=== PATIENT | male | born 1995 | race Caucasian/White ===

== ENCOUNTER 2022-05-22 13:38 | Emergency (ER) | payer OTHER, SELFPAY ==
--- NOTE | ~2022-05-22 | XR_ITS ---
EXAMINATION: XR ANKLE, RIGHT CLINICAL INFORMATION: Pain COMPARISON: None TECHNIQUE: AP, lateral, and mortise views of the right ankle. FINDINGS: There is no evidence of acute fracture or dislocation of the right ankle. Ankle mortise appears intact. Some mild soft tissue swelling seen laterally. XR/XR ankle RT min 3V IMPRESSION: No significant bony abnormality of the right ankle identified.
[2022-05-22 13:42] VITALS: BP 105/53; PULSE 62; RESP 18; TEMP 37.2; O2SAT 97; BMI 28.3
--- NOTE | 2022-05-22 19:19 | ED.LOWEXIN ---
HPI - Extremity Injury (Lower) General Chief Complaint: Extremity Injury, Lower Stated Complaint: R ankle rolled Time Seen by Provider: 05/22/22 18:50 Source: patient Mode of arrival: ambulatory History of Present Illness HPI Narrative: 26-year-old male who states that he tripped and fell while fishing rolling his right ankle with swelling and otherwise denies head strike or loss of consciousness. Patient reports severe pain at the joint and is unable to bear weight. Related Data Allergies Allergy/AdvReac Type Severity Reaction Status Date / Time ibuprofen [IBUPROFEN] Allergy Unknown CERNA HIS Unverified 07/02/20 16:18 STOMACH ibuprofen Allergy Unknown GI burning Uncoded 03/29/16 00:00 Review of Systems Review of Systems: Pertinent positives and negatives as stated in HPI 10 point review of systems is otherwise negative. PMFSH Past Medical History Source: nursing notes reviewed Social History Social History Advance Directives: No Advance Directives Information Provided: No Physical Exam Vital Signs: Vital Signs: Last Vital Signs Temp 98.9 F 05/22/22 13:42 Pulse 62 05/22/22 13:42 Resp 18 05/22/22 13:42 BP 105/53 L 05/22/22 13:42 Pulse Ox 97 05/22/22 13:42 O2 Del Method 05/22/22 13:42 BMI result Body Mass Index 28.3 VITAL SIGNS: Reviewed. GENERAL: Well developed, well nourished, in no acute distress. HEAD: Normocephalic/atraumatic EYES: PERRLA, EOMI EARS: Ext canals without abnormality OROPHARYNX: no oral lesions noted, posterior pharynx clear LUNGS: Normal breath sounds. No adventitious sounds or accessory muscle use. SpO2<97> CARDIOVASCULAR: Regular rate and rhythm without noted murmurs ABDOMEN: Soft, non-tender, non-distended with bowel sounds. MUSCULOSKELETAL: No tenderness, deformities, or effusions noted on gross inspection. EXTREMITIES: No cyanosis, clubbing or edema; RIGHT ANKLE: Minimal swelling at the medial malleolus, however there is swelling at the lateral malleolus, foot is warm, capillary refill less than 3 seconds, palpable DP/PT.. SKIN: Inspection of the skin reveals no rashes NEUROLOGIC: Alert and oriented x 4. Strength and sensation to light touch were grossly intact x 4. Course Course Course Narrative: 26-year-old male with history and clinical presentation suggestive sprain versus fracture/dislocation and on review of imaging there is no evidence to suggest fracture or dislocation. Patient was provided with Tylenol (he is allergic to ibuprofen) and otherwise had an Bora wrap placed with crutch training and was discharged home in stable condition. Discharge Plan Discharge Clinical Impression: Ankle sprain and strain Patient Disposition: Home, Self-Care Instructions: Ankle Sprain (ED), Crutch Instructions (ED), R.I.C.E. Treatment (ED) Additional Instructions: 1. Recommend Tylenol 1000 mg, orally, every 6 hours as needed for pain control. Do not exceed 4000 mg within 24 hours. 2. Recommend applying ice to unexposed skin for 10-15 minutes, 3 to 4 times a day. 3. You have been provided with instructions regarding crutches and you should keep the Bora wrap in place unless showering and follow-up with your primary care provider by calling the office in the morning. Recommend trying lidocaine patch, this is available [id number], and apply to the area of maximal tenderness as directed on the outside packaging. Return to the ER for worsening symptoms. Stand Alone Forms: Work/School Release
[2022-05-22] MEDS: Acetaminophen 325 MG TABLET 975 MG PO (19:49)
== END 2022-05-22 19:50 | disposition home or self-care (01) ==
PROVIDERS: Emergency Provider Student in an Organized Health Care Education/Training Program
DX: S93.401A Sprain of unspecified ligament of right ankle, initial encounter (principal); S96.911A Strain of unspecified muscle and tendon at ankle and foot level, right foot, initial encounter; X50.1XXA Overexertion from prolonged static or awkward postures, initial encounter; Y93.19 Activity, other involving water and watercraft; Y92.89 Other specified places as the place of occurrence of the external cause; Y99.8 Other external cause status
CPT/HCPCS: 73610; 99283

== ENCOUNTER 2025-05-20 14:09 | Emergency (ER) | payer MEDICAID, SELFPAY ==
[2025-05-20 14:15] VITALS: BP 164/88; PULSE 86; RESP 18; TEMP 36.4; O2SAT 98; BMI 26.5
--- NOTE | 2025-05-20 14:21 | ED_ITS ---
HPI - Nausea/Vomiting/Diarrhea General Chief complaint: Abdominal Pain Stated complaint: Dehydration, vomiting Time Seen by Provider: 05/20/25 21:10 Related Data Previous Rx's ?Medication ?Instructions ?Recorded ondansetron 4 mg disintegrating 4 mg PO Q6-8H PRN naus ea and 05/20/25 tablet vomiting #14 tabs Allergies Allergy/AdvReac Type Severity Reaction Status Date / Time ibuprofen (IBUPROFEN) Allergy Unknown CERNA HIS Verified 05/20/25 14:22 STOMACH ibuprofen Allergy Unknown GI burning Uncoded 03/29/16 00:00 [facility] Social History Social History Smoked in Last 30 Days: Yes Use of substances other than those prescribed or required for medical reasons: Yes Substance Use Type: Marijuana Advance Directives: No Advance Directives Information Provided: No Physical Exam 2 Vital Signs: Vital Signs: Last Vital Signs Temp 98.0 F 05/20/25 22:30 Pulse 62 05/20/25 22:30 Resp 16 05/20/25 22:30 BP 140/61 H 05/20/25 22:30 Pulse Ox 98 05/20/25 22:30 O2 Del Method Room Air 05/20/25 22:30 BMI result Body Mass Index 26.5 Course Course Course Narrative: This is a Rapid Medical Examination (RME) performed by Naila Ken PA-C in triage. Full HPI, ROS, assessment and treatment plan per primary provider in the Main ED. 29 y/o male presents to the ER for evaluation of intractable nausea and vomiting since yesterday at 11am. smokes marijuana daily but denies history of cyclical vomiting. last BM 2 days ago and was normal. no known sick contacts. reports epigastric abdominal pains that come and go. vomited 15 times today. on exam is he is awake, alert, no distress. no active vomiting. abd w/ voluntary guarding, epigastric tenderness, hyperactive bowel sounds. lungs are clear and RRR on cardiac exam. Plan: MADHAVI weaver now, lab workup Reevaluation(s) Reevaluation #1: patient left the ER prior to completing treatment Medications Administered Discontinued Medications Generic Name Dose Route Start Last Admin Trade Name Freq PRN Reason Stop Dose Admin Famotidine 20 mg 05/20/25 21:56 05/20/25 22:01 Famotidine/Pf 20 Mg/2 Ml Vial IVPUSH 05/20/25 21:57 20 mg ONCE ONE Administration Lactated Ringer's 1,000 mls @ 999 mls/hr 05/20/25 21:00 05/20/25 22:30 Lr IV 05/20/25 22:00 Infused .Q1H1M YOLANDA Infusion Ondansetron HCl 4 mg 05/20/25 14:23 05/20/25 14:26 Ondansetron Odt 4 Mg Tab.Rapdis TRANSLINGU 05/20/25 14:24 4 mg ONCE ONE Administration Prochlorperazine Edisylate 10 mg 05/20/25 21:11 05/20/25 21:28 Prochlorperazine Edisylate 10 Mg/2 Ml Vial IVPUSH 05/20/25 21:12 10 mg ONCE ONE Administration Medical Decision Making Lab Data 05/20/25 14:32 05/20/25 14:32 Labs: Lab Results 05/20/25 Range/Units 14:32 WBC 16.1 H (4.8-10.8) X10*3/uL RBC 4.96 (4.60-5.80) X10*6/uL Hgb 15.9 (14.0-18.0) g/dl Hct 46.1 (42.0-52.0) % MCV 92.9 (80.0-98.0) fL MCH 32.1 (27.0-33.0) pg MCHC 34.5 (31.0-36.0) g/dl RDW 13.0 (11.0-16.0) % Plt Count 275 (160-400) X10*3/uL MPV 10.5 (9.4-12.4) fL Immature Gran % (Auto) 0.5 H (0.0-0.4) % Neut % (Auto) 79.0 H (45-73) % Lymph % (Auto) 11.6 L (20-40) % Curry % (Auto) 8.8 (2-11) % Eos % (Auto) 0.0 (0-4) % Baso % (Auto) 0.1 (0-2) % Lymph # (Auto) 1.9 (1.2-4.9) X10*3/uL Curry # (Auto) 1.4 H (0.1-1.2) X10*3/uL Eos # (Auto) 0.0 (0.0-0.4) X10*3/uL Baso # (Auto) 0.0 (0.0-0.2) X10*3/uL Abs Immat Gran (auto) 0.08 H (0.00-0.03) X10*3/uL Absolute Neuts (auto) 12.7 H (2.0-8.3) x10*3/uL Absolute Nucleated RBC 0.000 (0.0-0.012) X10*3/uL Nucleated RBC % (auto) 0.0 (0.0-0.2) /100WBC Sodium 141 (135-145) mmol/L Potassium 3.2 L (3.3-5.1) mmol/L Chloride 102 (96-108) mmol/L Carbon Dioxide 27 (22-29) mmol/L Anion Gap 15 (12-20) BUN 9 (9-16) mg/dL Creatinine 1.03 (0.5-1.4) mg/dL Estim Creat Clear Calc 108.2 Estimated GFR > 60 Random Glucose 135 H (60-115) mg/dL Calcium 9.9 (8.4-10.2) mg/dL Magnesium 1.9 (1.6-2.6) mg/dL Total Bilirubin 0.6 (0.0-1.0) mg/dL Direct Bilirubin 0.2 (0.0-0.5) mg/dL AST 24 (5-37) U/L ALT 24 (0-40) U/L Alkaline Phosphatase 90 (39-117) U/L Total Protein 8.1 H (6.5-8.0) g/dL Albumin 5.4 H (3.5-5.0) g/dL Lipase 75 (8-78) U/L Discharge Plan Discharge Clinical Impression: Vomiting Patient Disposition: Home, Self-Care Instructions: Acute Nausea and Vomiting (DC) Additional Instructions: Drink plenty of fluids Take medication for nausea as prescribed Follow with your PCP as needed Do not smoke Cannabis as it could be triggering the vomiting Prescriptions: New ondansetron 4 mg tablet,disintegrating 4 mg PO Q6-8H PRN (Reason: nausea and vomiting) Qty: 14 0RF Stand Alone Forms: Work/School Release Interventions: ED Discharge Assessment Last Done: 05/20/25 22:30 Discharge Date/Time: 05/20/25 22:31 Print Language: Ghanaian
[2025-05-20 14:36] LABS: MANUAL DIFF FLAG NO
[2025-05-20 14:40] LABS: Hematocrit 46.1 % (42.0-52.0); Hemoglobin 15.9 g/dl (14.0-18.0); Imm Gran Abs Auto 0.08 X10*3/uL (0.00-0.03); Imm Gran Pct Auto 0.5 % (0.0-0.4); Lymphocytes Absolute Auto 1.9 X10*3/uL (1.2-4.9); Mean Corpuscular HGB Conc 34.5 g/dl (31.0-36.0); Mean Corpuscular Hemoglobin 32.1 pg (27.0-33.0); Mean Corpuscular Volume 92.9 fL (80.0-98.0); NRBC Abs Auto 0.000 X10*3/uL (0.0-0.012); NRBC Pct Auto 0.0 /100WBC (0.0-0.2); Platelet Count 275 X10*3/uL (160-400); Red Blood Count 4.96 X10*6/uL (4.60-5.80); White Blood Count 16.1 X10*3/uL (4.8-10.8)
[2025-05-20 14:59] LABS: Alanine Aminotransferase 24 U/L (0-40); Albumin Level 5.4 g/dL (3.5-5.0); Alkaline Phosphatase 90 U/L (39-117); Anion Gap 15 (12-20); Aspartate Amino Transferase 24 U/L (5-37); Blood Urea Nitrogen 9 mg/dL (9-16); Calcium 9.9 mg/dL (8.4-10.2); Carbon Dioxide 27 mmol/L (22-29); Chloride 102 mmol/L (96-108); Creatinine Clr Calc Pharmacy 108.2; Estimated Glomerular Filt Rate > 60; Lipase 75 U/L (8-78); Magnesium 1.9 mg/dL (1.6-2.6); Potassium 3.2 mmol/L (3.3-5.1); Sodium 141 mmol/L (135-145); Total Protein 8.1 g/dL (6.5-8.0)
[2025-05-20 20:50] VITALS: BP 130/64; PULSE 61; RESP 20; TEMP 36.7; O2SAT 98
[2025-05-20 20:54] VITALS: BP 126/72; PULSE 58; RESP 16; TEMP 36.8; O2SAT 96
[2025-05-20] MEDS: Lactated Ringers 1,000 ML 999 ML IV (21:04)
--- OUTSIDE RECORDS SUMMARY | 2025-05-20 21:37 | XMS_ITS | Clinical Summary ---
Author Organization [facility] Facility Address [address] [place] [id number] Care Team Providers Care Technical Adjuster Name Role Phone Mukund Livingston Primary Care Provider Unavaila ble Social History Tobacco Use Types Packs/Day Years Used Date Smoking Tobacco: Never Assessed Sex and Gender Information Value Date Recorded Sex Assigned at Not on file Legal Sex Male 9:27 AM EDT Gender Identity Not on file Sexual Orientation Not on file Plan of Treatment Health Maintenance Due Date Last Done Comments Hepatitis B Vaccine (1 of 3 - 19+ 3-dose series) 08/12 Pneumococcal Vaccine: Peds ( 0 to 5 Years) and At-Risk Patients (6 to 49 Years) (1 of 2 - PCV) 2013 Influenza Vaccine (#1) 2025 Insurance Medicaid ID Care Teams Technical Adjuster Relationship Specialty Start Date End Date Mukund Livingston PA [address] [place] [id number] PCP - General Brick Baker 12/27/24
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
[2025-05-20 22:00] VITALS: BP 140/61; PULSE 62; RESP 16; TEMP 36.7; O2SAT 98
[2025-05-20 22:30] VITALS: BP 140/61; PULSE 62; RESP 16; TEMP 36.7; O2SAT 98
== END 2025-05-20 22:31 | disposition home or self-care (01) ==
PROVIDERS: Physician Assistant; Emergency Provider Internal Medicine
DX: R11.10 Vomiting, unspecified (principal); E86.0 Dehydration; R10.9 Unspecified abdominal pain
CPT/HCPCS: 36415; 80048; 80076; 83690; 83735; 85025; 96361; 96374; 96375; 99284; J0737; J1308; J7120